=== PATIENT | female | born 1990 | race Caucasian/White ===

== ENCOUNTER → 2016-08-16 | Outpatient (CLI) | payer BC ==
--- NOTE | 2016-08-16 14:05 | US ---
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 GLAND SIZE: Right Lobe: 4.9 x 1.5 x 1.6 cm Overall Parenchyma: homogenous Left Lobe: 4.2 x 1.3 x 1.7 cm Overall Parenchyma: homogeneous Isthmus Thickness: 0.4 cm NODULES RIGHT: # of nodules measured on right: 0 LEFT: # of nodules measured on left: 0 ISTHMUS: # of nodules measured in the isthmus: 0 Bilateral neck scanned, no evidence of lymphadenopathy. Normal appearing nodes noted left neck IMPRESSION: MILD RIGHT-SIDED THYROMEGALY.
== END | disposition home or self-care (01) ==
LOC: RADUSWWP 13:40
PROVIDERS: ATTEND Internal Medicine
DX: E01.0 Iodine-deficiency related diffuse (endemic) goiter (principal)
CPT/HCPCS: 76536

== ENCOUNTER → 2016-09-12 | Outpatient (CLI) | payer BC ==
--- NOTE | 2016-09-12 19:40 | CONS ---
DATE OF CONSULTATION: 09/12/2016 CONSULTATION/NEW PATIENT EVALUATION 26-year-old lady who [facility] for possible obstructive sleep apnea-hypopnea syndrome. 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 On the days when she is off she sleeps from around 11:00 p.m. until 6:00 to 7:30 a.m. FALLING ASLEEP: No problem with falling asleep at all. No TV in bedroom. DURING SLEEP: She sleeps in different positions. She snores. Wakes up from sleep once. Usually no episodes of nocturia. DURING THE DAY/WAKE STATE: In the morning she wakes up tired, falling asleep during the day. [place] Sleepiness Scale is 5. She takes usually one nap during the day in the afternoon time. PAST MEDICAL HISTORY: Positive for hypertension polycystic ovary syndrome. PAST SURGICAL HISTORY: None. MEDICATIONS: Lisinopril, spironolactone, Glucophage. SOCIAL HISTORY: Negative for smoking. Alcohol consumption, occasional. REVIEW OF SYSTEMS: Sleepiness during the day. No fevers. No double vision. No recent chest pain. No shortness of breath. No abdominal pain. No bleeding episodes. No blood in urine. No seizure episodes. FAMILY HISTORY: Hypertension, hyperlipidemia, lung problems, snoring. PHYSICAL EXAMINATION: GENERAL: During physical exam, lady without distress. VITAL SIGNS: BP 125/61, HR 88, RR 12. Height 68. Weight 254.4. BMI 38.6. Neck 16-1/3 inches in circumference. Temp is 98.9. Oxygen saturation at room air 97%. HEENT: PERRLA, EOMI. Evaluation of oropharynx showed retrognathia 1 mL, extremely low position of soft palate. NECK: Supple. No JVD. Thyroid is not palpable. LUNGS: Clear to percussion and to auscultation. Good air exchange. No wheezing or rhonchi. HEART: S1, S2 regular. No murmurs, gallops or rubs. ABDOMEN: Obese. Soft and nontender. Bowel sounds are present. No organomegaly appreciated. EXTREMITIES: No clubbing or cyanosis. 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 Cranial nerves 2 to 7 intact. There is no fasciculation or atrophy noted. No focal deficits observed. IMPRESSION: 1. Snoring, awakenings from sleep, feeling sleepy during the day, low position of soft palate, possible obstructive sleep apnea-hypopnea syndrome. 2. Obesity; body mass index 38.6. 3. Hypertension. 4. Polycystic ovary syndrome. 5. Possible shift work sleep disorder. PLAN: 1. Home sleep apnea test for evaluation of patient's breathing during sleep. 2. CPAP/BiPAP titration if sleep study confirms obstructive sleep apnea-hypopnea syndrome. 3. Preferable position during sleep on the side. 4. No driving if patient feels any sleepiness. Patient is aware of civil and criminal liability for unsafe driving. 5. I will see patient for follow-up visit to explain results of the testing and following plan. Thank you very much for referring this patient for consultation. Sincerely, Tutu Bobo MD, PhD, FAASM. Diplomat of [place] [employer], Sleep Medicine Board by [employer] [employer] Seam Closer of [facility] [place]
== END | disposition home or self-care (01) ==
LOC: SLEEP 15:22
PROVIDERS: ATTEND Internal Medicine
DX: R06.83 Snoring (principal); I10 Essential (primary) hypertension; E28.2 Polycystic ovarian syndrome; E66.9 Obesity, unspecified; Z68.38 Body mass index [BMI] 38.0-38.9, adult; Z79.899 Other long term (current) drug therapy
CPT/HCPCS: 99211

== ENCOUNTER → 2017-09-19 | Outpatient (CLI) | payer OTHER ==
--- NOTE | 2017-09-20 12:25 | US ---
EXAMINATION TYPE: US transvaginal DATE OF EXAM: 09/19/2017 COMPARISON: NONE CLINICAL HISTORY: E28.2 POLYCYSTIC OVARIAN SYNDROME. TECHNIQUE: Transvaginal (TV). Date of LMP: 08/07/2017 EXAM MEASUREMENTS: Uterus: 7.1 x 4.1 x 7.5 cm Endometrial Stripe: 1.7 cm Right Ovary: 3.7 x 2.8 x 3.6 cm Left Ovary: 4.3 x 1.6 x 4.3 cm 1. Uterus: Anteverted wnl 2. Endometrium: measures 1.7 cm 3. Right Ovary: wnl 4. Left Ovary: wnl 5. Bilateral Adnexa: wnl 6. Posterior cul-de-sac: no free fluid Grayscale, color Doppler performed of the ovaries. Scattered follicles noted within the ovaries. Ther e is suggestion of peripherally oriented follicles. IMPRESSION: There is abnormal thickening of the endometrial stripe on sagittal imaging which may be t echnical, consider THERMOSTAT MECHANIC consult, follow-up. Peripherally oriented follicles could be in keeping with p geremias's diagnosis.
== END ==
LOC: RADUSWWP 16:15
PROVIDERS: ATTEND Family Medicine
DX: R93.8 Abnormal findings on diagnostic imaging of other specified body structures (principal); E28.2 Polycystic ovarian syndrome
CPT/HCPCS: 76830

== ENCOUNTER → 2020-12-11 | Outpatient (CLI) | payer BC ==
--- NOTE | 2020-12-12 15:07 | USB ---
Reason for exam: clinical finding. History: Family history of breast cancer in maternal aunt at age 55. Physical Findings: Nurse Summary: 1.5cm soft, movable lump right breast 9 o'clock (nurse TM). US Breast Limited RT Technologist: Antonietta Fabian Right limited breast ultrasound including focal area of concern, retroareolar and axilla demonstrates no cystic or solid lesion seen. These results were verbally communicated with the patient and result sheet given to the patient on 12/11/20. ASSESSMENT: Negative, BI-RAD 1 RECOMMENDATION: Clinical management of the right breast. Manage patient on a clinical basis.
== END | disposition home or self-care (01) ==
LOC: RADUSWWP 10:09
PROVIDERS: ATTEND Obstetrics & Gynecology Obstetrics
DX: R92.8 Other abnormal and inconclusive findings on diagnostic imaging of breast (principal); Z80.3 Family history of malignant neoplasm of breast